=== PATIENT | male | born 1980 | race African-American/Black ===

== ENCOUNTER 2024-11-07 21:31 | Emergency (ER) | payer OTHER, SELFPAY ==
[2024-11-07 21:46] VITALS: BP 134/87
[2024-11-07 22:28] LABS: COVID-19 Antigen Negative (Negative)
--- NOTE | 2024-11-08 00:52 | ED.GENMED ---
History of Present Illness
General
Chief Complaint: Abdominal Symptoms
Source: patient
Exam Limitations: none
Time Seen by Provider: 11/08/24 00:17
Nursing documentation reviewed up to this point in time: agreed with
History of Present Illness
History of Present Illness:
Patient presents to ED secondary to multiple episodes of nonbloody diarrhea over the past 24 hours. Denies fever or chills. Denies abdominal pain. Denies vomiting. Denies headache. Denies dizziness. Patient's son and spouse had experienced
diarrhea episodes recently as well. Denies recent travel. Denies recent change in medications or diet. Denies dizziness. Denies weakness. Denies loss of appetite.
Review of Systems
Review of Systems
Allergies reviewed?: Yes
All Other Systems: ROS reviewed and negative except as documented in HPI and ROS
Constitutional: Reports no symptoms; Denies fever
Respiratory: Reports no symptoms
Cardiac: Reports no symptoms
ABD/GI: Reports diarrhea; Denies abdominal pain or vomiting
Musculoskeletal: Reports no symptoms
Skin: Reports no symptoms
Neurological: Reports no symptoms; Denies dizzy, headache or weakness
Phy Exam
Physical Exam
Physical Exam:
Physical Exam
General: no apparent distress, not acutely ill. afebrile
Head: nc/at. eomi
Neck: supple. no meningeal signs.
Heart: s1/s2 regular rate and rhythm, no murmur.
Lungs: no acute respiratory distress. clear bilaterally
Abdomen: normal bowel sounds. not tender.
Neuro: alert and oriented x 3. no focal neurological deficits
Skin: no rash
Psychiatric: well kept. interactive and cooperative
Extremities: no edema. no calf tenderness.
Course
Orders/Labs/Results
Orders:
Orders
11/07/24 21:54
COVID-19 Antigen Urgent
Source: Nasal Swab
Influenza A+B Rapid Molecular Urgent
ISAURO Source: Nasal Swab
Specimen Description:
Vital Signs
Initial and Last Documented VS:
Initial Vital Signs
Temp Pulse Resp BP Pulse Ox
97.8 F 82 20 134/87 95
11/07/24 21:46 11/07/24 21:46 11/07/24 21:46 11/07/24 21:46 11/07/24 21:46
Last Documented Vital Signs
Temp Pulse Resp BP Pulse Ox
97.8 F 76 18 156/73 99
11/07/24 21:46 11/08/24 01:04 11/08/24 01:04 11/08/24 01:04 11/08/24 01:04
MDM/Problems Addressed
MDM/Problems Addressed:
History and exam consistent with likely viral illness, as etiology for diarrhea x 24 hours. Fortunately, patient is otherwise healthy individual, without significant past medical history, without any evidence of dehydration. Patient with stable
vital signs. As such, patient will be discharged home in stable condition, with recommendation to continue hydration, along with PCP follow-up as an outpatient. Patient advised to return to ED with worsening symptoms. Patient expresses
understanding, at time of discharge.
*Critical Care Note
Total Time (30-74mins, 75-104mins- exclusive of procedures): Not Applicable
ED Attending Note
-
Portions of this chart may have been created with voice recognition software.� Occasional wrong word or��sound alike� substitutions may have occurred due to the inherent limitations of voice recognition software.
Discharge Plan
Departure
Patient Disposition: Home (Routine Discharge)
Date of Disposition: 11/08/24
Time of Disposition: 00:52
Patient with high blood pressure during this ER visit?: Yes
Condition: Good
Discharge Problem:
Diarrhea
Instructions: Diarrhea in teens and adults
Referrals:
UNKNOWN - PT DOES,NOT KNOW [Family Provider] -
Stand Alone Forms: Return to Work
Activity Restrictions/Additional Instructions:
As discussed, please follow-up with your primary care physician with any further concerns. Please consider return to ED with worsening symptoms
Interventions
Interventions:
*Risk Screen - Suicide Last Done: 11/07/24 21:46
*General Assessment Last Done: 11/07/24 21:46
*Neglect/Abuse Screening Last Done: 11/07/24 21:46
ED- Fall Risk Assessment Last Done: 11/08/24 01:04
*ED COVID-19 Vaccine History Last Done: 11/08/24 01:04
*Nursing Disposition Last Done: 11/08/24 01:04
RZ-Nnavdz-Urkiisjfkx Assessment Last Done: 11/08/24 00:38
Discharge Date and Time
Discharge Date/Time: 11/08/24 01:04
Print Language: YAKUT
[2024-11-08 01:04] VITALS: BP 156/73
== END 2024-11-08 01:04 | disposition home or self-care (01) ==
LOC: EMR 21:31
PROVIDERS: EMERGENCY PHYSICIAN Emergency Medicine
DX: R19.7 Diarrhea, unspecified (principal)
CPT/HCPCS: 99282; 87502; 87811